=== PATIENT | female | born 1945 | race Caucasian/White ===

== ENCOUNTER → 2017-08-06 | Outpatient (CLI) | payer OTHER | LOC: CIMAGING 12:16 | DX: Z12.31 Encounter for screening mammogram for malignant neoplasm of breast (principal) | CPT/HCPCS: G0202 ==

== ENCOUNTER → 2018-08-09 | Outpatient (CLI) | payer OTHER | LOC: CIMAGING 09:33 | DX: Z12.31 Encounter for screening mammogram for malignant neoplasm of breast (principal) ==

== ENCOUNTER 2018-10-16 14:24 | Emergency (ER) | payer OTHER ==
[2018-10-16 14:34] VITALS: BP 172/75
[2018-10-16] MEDS ORDERED: PROPARACAINE/FLUORESCEIN SOD 5 ML OPHT.BTL ONE (14:45)
--- NOTE | 2018-10-16 15:00 | EDPHY ---
H & P Time Seen by Provider: 10/16/18 14:33 HPI/ROS: CHIEF COMPLAINT: Shingles HISTORY OF PRESENT ILLNESS: 73-year-old female , immunocompetent, presents emergency department with a rash which began on Thursday. Rash is across her scalp, right side of her forehead, and patient noticed this morning she was developing lesions under the right eye. She believes this is shingles. She went to an urgent care and was referred to the emergency department to have an ophthalmological exam. She has otherwise been well. No fevers or chills. No cold or cough symptoms. No nausea vomiting. No eye complaints. No erythema of the eye, double vision, blurred vision, or foreign body sensation. REVIEW OF SYSTEMS: A comprehensive 10 system review of systems was reviewed and is otherwise negative aside from elements mentioned in the history of present illness and medical decision making. PAST MEDICAL HISTORY: Hypothyroidism SOCIAL HISTORY: Nonsmoker. Did not receive the shingles vaccination. VITAL SIGNS Reviewed by me. GENERAL: Well-developed, well-nourished, resting comfortably in no respiratory distress. HEENT: Atraumatic. Erythematous, vesicular rash noted a in the right scalp, right forehead, at the nasal labial fold, on the right eyelid, with 2 new lesions underneath the right eye. Pupil equal round reactive to light. No conjunctival injection. No discharge. Mouth: moist mucous membranes. No erythema or lesions. Neck: supple with no adenopathy. NEURO: Alert and oriented, conversant, grossly nonfocal. SKIN: As described above. No other rash noted. PSYCHIATRIC: Normal mentation, no agitation. Focused examination of the right eye utilizing flourescein. Eyelid: Vesicular lesions along the medial aspect of the eyelid with minimal swelling. Pupils: 4 mm Round and reactive to light EOMI Conjunctivae: No injection, no discharge. Cornea: Exam with fluorescein shows no uptake, no dendritic lesions. Anterior chamber: Normal, no hyphema or hypopyon no cell and flare. Skin: No proptosis. Constitutional: Initial Vital Signs Temperature (C) 37.0 C 10/16/18 14:31 Heart Rate 82 10/16/18 14:31 Respiratory Rate 14 10/16/18 14:31 Blood Pressure 172/75 H 10/16/18 14:31 O2 Sat (%) 97 10/16/18 14:31 O2 Delivery Mode Room Air Allergies/Adverse Reactions: No Known Allergies Allergy (Verified 10/16/18 15:06) Home Medications: Medication Instructions Recorded Levothyroxine 12/25/09 Valacyclovir HCl [Valtrex] 1,000 mg PO TID #21 tab 10/16/18 Medical Decision Making ED Course/Re-evaluation: 73-year-old female presents emergency department with herpes zoster across the right forehead and around the right eye. Examination with fluorescein demonstrates no evidence of involvement of the eye , conjunctiva, iris, or cornea. Patient is placed on a valacyclovir 1000 mg by mouth 3 times a day for the next 7 days as she is continuing to have new lesions appearing. She was advised to follow up with an supervisor vegetable farming on Thursday without fail for re-examination. She was also given information regarding potential eye involvement and reasons to return to the emergency department sooner including redness, discharge, eye pain, blurred vision, or other concerns. Differential Diagnosis: Differential diagnosis of the patient's rash was considered including but not limited to shingles, herpes zoster ophthalmicus, cellulitis, herpes zoster in a immunocompetent patient, herpes zoster in an immunosuppressed patient. Departure - Departure Disposition: Home, Routine, Self-Care Clinical Impression: Shingles outbreak Qualifiers: Herpes zoster complications: without complications Qualified Code(s): B02.9 - Zoster without complications Condition: Good Instructions: Valacyclovir (By mouth), Shingles (ED) Additional Instructions: Please take the valacyclovir as directed. 1000 mg by mouth 3 times a day for the next 7 days. You may use Tylenol or ibuprofen as needed for pain. Please follow up on Thursday with Ophthalmology for re-examination. If you begin to develop any pain in the eye, irritation, foreign body sensation , blurred vision, injection of the eye, redness, or other concerns, please return to the emergency department or seek care urgently. Referrals: Nia Olivarez MD [Primary Care Provider] - As per Instructions Dwayne Walters MD [Medical Doctor] - As per Instructions Tonya Amaro MD [Medical Doctor] - As per Instructions (Please call Dr. Amaro office on Thursday. Asked to be seen on Thursday or Thursday for re- examination of your eye. If you develop any significant eye discomfort or blurry vision, please return to the emergency department or seek care with supervisor vegetable farming urgently.) Prescriptions: Valacyclovir HCl [Valtrex] 1,000 mg PO TID #21 tab
== END 2018-10-16 15:11 | disposition home or self-care (01) ==
LOC: CED 14:24
DX: B02.9 Zoster without complications (principal)
CPT/HCPCS: 99283-ER